=== PATIENT | male | born 1975 | race Two or more races ===

== ENCOUNTER → 2022-11-27 | Emergency (ER) | payer OTHER ==
[~2022-11-27] VITALS: Ht 157.5 cm; Wt 111.1 kg
[~2022-11-27] MED LIST: DICLOFENAC SODI75 MG PO; LOSARTAN POTASS50 MG PO; NORFLEX100MG PO
== END | disposition home or self-care (01) ==
LOC: ER 14:15
DX: M54.50 Low back pain, unspecified (principal)